=== PATIENT | female | born 1970 | race Caucasian/White ===

== ENCOUNTER 2019-12-06 07:13 | Observation (INO) ==
--- NOTE | 2019-11-17 15:03 | PAT Medication Instructions ---
Medication Instructions Date of Service November 17, 2019 Home Medications multivitamin 1 tab PO PM ibuprofen 600 mg PO DAILY PRN ASK your surgeon for instructions ibuprofen 600 mg PO DAILY PRN Take evening before surgery multivitamin 1 tab PO PM OTHERWISE NOTHING TO EAT OR DRINK AFTER MIDNIGHT Other Notes If you have any questions please call us at [phone] or [phone] or [phone] or [phone]
--- NOTE | 2019-11-19 12:20 | Anesthesiology Consultation ---
Date of Service November 19, 2019 Assessment & Plan (1) Encounter for pre-operative examination: COVID Status: As of 11/18 assessment, patient denies travel to endemic area, known exposure/sick contacts, or symptoms of COVID19. Patient instructed that they and their household members must follow strict social distancing guidelines, wear a mask in public and avoid travel for 14 days prior to surgery. Preoperative COVID19 testing to be completed prior to surgery per surgeon's a rrangements. Patient made aware to self-isolate as much as possible between COVID testing and surgery. Chart Review Chart Review: Acceptable Risk for Surgery and Patient seen in Pre Admission Testing Teaching & Discussion Instructed NPO after midnight before surgery, except medications with 15 cc of water. Medication instructions provided according to the PAT guidelines. History Surgery Operation Date: 12/06/19 07:30 Proposed Procedures p Robotic Total Laparoscopic Hysterectomy - Kiera Baca MD, FACOG Height/Weight Height: 5 ft 3 in Weight: 57.4 kg Allergies Allergy/AdvReac Type Severity Reaction Status Date / Time No Known Allergies Allergy Verified 11/19/19 11:01 Medications Home Medications Medication Instructions Recorded Confirmed Last Taken multivitamin 1 tab PO PM 05/11/19 11/19/19 Unknown Past Medical History Medical History Abnormal uterine bleeding (AUB) AUB - Heavy Chronic constipation Dyspareunia Hx of migraines Hx of varicella Ovarian cyst Exercise / Class Metabolic Activity II 4-5 Yardwork/Stairs/Walk up hill Past Family History Family History Brother Pulmonary embolism from this Deep vein thrombosis from this Other Colon cancer Heart disease Hypertension Ovarian cyst Thyroid disease Past Surgical History Surgical History H/O section x2 Hx of LASIK Hx of tubal ligation S/P tonsillectomy Past Anesthesia History No Hx of Anesthesia Complications and No Family Hx of Anesthesia Complications History of PONV No Hx of PONV and Hx of Motion Sickness Social History Smoking Status: Never smoker Do You Dip or Chew Tobacco: No Hx Alcohol Use: No Hx Substance Use: No substance use type: does not use Review of Systems Pt denies any recent chest pain, shortness of breath, palpitations, cough, fever, URI, or uncontrolled acid reflux. Physical Exam Vital Signs BP: 110/74 P: 87bpm SPO2: 99% RA T: 98.4 F R: 16 Constitutional Appears younger than stated age. ENMT Mouth: + chipped teeth (upper L and lower R molar); no dental restorations and no loose teeth Thyromental Distance: < 3.5 Finger Breadths (3) Mallampati Class: I Neck normal visual inspection; neck extension not limited Respiratory normal respiratory effort Auscultation: lungs clear to auscultation bilaterally Cardiovascular Rate/Rhythm: regular rate and regular rhythm Heart Sounds: no murmur Testing Laboratory Results 11/19/19 12:40 Blood Type A Positive 11/19/19 12:40 Antibody Screen NEGATIVE 11/19/19 12:40 10/26/19 WBC: 5.77 H/H: 11.2/33.1 PLATELETS: 249 Electrocardiogram Date: 11/19/19 Findings: + NSR @ (60bpm)
[2019-11-19 13:30] LABS: BUN Creatinine Ratio 14.6 (10-20); Calcium 8.8 mg/dl (8.5-10.1); Creatinine Clr Calc Pharmacy 74.4 ml/min; Est GFR (African American) 108.7; Est GFR (Non-African American) 93.8; Potassium 4.4 mmol/L (3.5-5.1)
--- NOTE | 2019-11-19 14:15 | Electrocardiogram Report ---
Test Reason : Blood Pressure : / mmHG Vent. Rate : 060 BPM Atrial Rate : 060 BPM P-R Int : 138 ms QRS Dur : 078 ms QT Int : 410 ms P-R-T Axes : 080 080 064 degrees QTc Int : 410 ms Normal sinus rhythm Normal ECG No previous ECGs available Confirmed by Alireza Soni ([id number]) on 11/19/2019 2:14:53 PM Referred By: Kiera Baca Confirmed By:Alireza Soni
[~2019-12-06 07:13] MED LIST: CEFAZOLIN 2000MG 2,000 MG/15 ML SYR IV SCH; LACTATED RINGER'S 1,000 ML IV SCH; LR 15ML/HR IV SCH
[2019-12-06] MEDS ORDERED: PROPOFOL IV EMULSION 10 MG/ML 20 ML VIAL IV ONE (07:14)
[2019-12-06] MEDS ORDERED: NEOSTIGMINE METHYLSULFATE 5 MG/5 ML SYR ONE (07:14)
[2019-12-06] MEDS ORDERED: ONDANSETRON INJ 2 MG/ML 2 ML VIAL ONE ×2 (07:14→10:11)
[2019-12-06] MEDS ORDERED: DEXAMETHASONE SOD INJ 4 MG/ML VIAL ONE (07:14)
[2019-12-06] MEDS ORDERED: GLYCOPYRROLATE 0.2 MG/ML VIAL ONE (07:14)
[2019-12-06] MEDS ORDERED: LIDOCAINE HCL 2% 2 ML VIAL/AMP(20MG/ML) INFIL ONE (07:14)
[2019-12-06] MEDS ORDERED: MIDAZOLAM HCL 1 MG/ML 2ML VIAL ONE (07:15)
[2019-12-06] MEDS ORDERED: fentaNYL citrate 100 MCG/2 ML VIAL ONE ×2 (07:15→10:58)
[2019-12-06] MEDS ORDERED: LARYING-O-JET KIT (LTA) ONE (07:17)
[2019-12-06] MEDS ORDERED: ROCURONIUM BROMIDE 10 MG/ML 5 ML VIAL IV ONE (07:17)
[2019-12-06] MEDS ORDERED: ATROPINE SULFATE 0.1 MG/ML 10ML SYR IV PRN (07:37)
[2019-12-06] MEDS ORDERED: MEPERIDINE HCL 25 MG/ML CARP/VIAL IV PRN (07:37)
[2019-12-06] MEDS ORDERED: PHENYLEPHRINE 100MCG/ML 5ML SYR IV PRN (07:37)
[2019-12-06] MEDS ORDERED: ePHEDrine sulfate 50 MG/ML AMP IV PRN (07:37)
[2019-12-06] MEDS ORDERED: HYDROmorphone INJ 1 MG/ML SYRINGE IV PRN (07:37)
[2019-12-06] MEDS ORDERED: LABETALOL HCL IV 5 MG/ML 20ML IV PRN (07:37)
[2019-12-06] MEDS ORDERED: ONDANSETRON INJ 2 MG/ML 2 ML VIAL IV PRN ×2 (07:37→13:17)
[2019-12-06] MEDS ORDERED: METHYLENE BLUE 0.5% 10 ML VIAL ONE ×2 (07:55→10:10)
[2019-12-06] MEDS ORDERED: BUPIVACAINE 0.5 % 5 MG/1 ML MPF 30ML VIAL ONE (07:55)
--- NOTE | 2019-12-06 08:58 | History & Physical Bridge Note ---
Date of Service December 06, 2019 History & Physical Bridge Note I have examined the patient, reviewed the History & Physical and in the interval since the performance of the History & Physical I have noted the following changes of clinical significance: no changes noted
[2019-12-06] MEDS ORDERED: SUGAMMADEX SODIUM 200 MG/2 ML VIAL IV ONE (10:13)
[2019-12-06] MEDS ORDERED: PHENYLEPHRINE 100MCG/ML 5ML SYR ONE (10:15)
[2019-12-06] MEDS ORDERED: TISSEEL FIBRIN SEALANT 4ML TOP ONE (10:29)
--- NOTE | 2019-12-06 10:56 | Operative Report ---
PG Post Operative Report Pre & Post Diagnosis Operation Date: 12/06/19 08:45 Pre-Op Diagnosis: Intramural Uterine Fibroid, abnormal uterine bleeding Post-Op Diagnosis: Intramural Uterine Fibroid, abnormal uterine bleeding I identified the patient and participated in the time-out.: Yes Procedure Operation Date: 12/06/19 08:45 Actual Procedures p Robotic-assisted Total Laparoscopic Hysterectomy, bilateral salpingectomy, cystoscopy - Kiera Baca MD, FACOG Surgeon Kiera Baca MD, FACOG Track Moving Machine Operator . Estimated Blood Loss 20 Findings Consistent with Post-Op Diagnosis Specimens Uterus cervix fallopian tubes Description of Procedure Patient was given a general anesthetic, prepped and draped in dorsal lithotomy position in yellow fin guru stirrups. Care was taken to position the legs and arms properly with no excess pressure on any area. Pre-operative antibiotics were given and SCDs applied earlier. James catheter was inserted into her bladder, V-Care manipluator was placed in the uterus and sutured in place. Gloves were changed and then a supra-umbilical incision was made with scalpel, using Claudia technique, we dissected through the subcutaneous fat, fascia, split the rectus muscles and then entered the peritoneal cavity.. Blunt tip Claudia Trochar then inserted and balloon inflated to stabilize the port. CO2 gas was then used to insufflate the peritoneal cavity. Findings. modest bladder adhesions, otherwise normal pelvis Deep tendelenberg position was obtained. 2 robotic ports were then placed, one on the left, one on the right side under direct visualization. 11mm bladeless accessory port placed in left upper quadrant under direct visualization. Robot docked. Arm #1 Monopolar nayana, arm #2 Bipolar [place] grasper. Fallopian tubes were identified and removed with the monoplar nayana and removed thru the accessory port. Ureter was identified on each side and followed a normal course. Distal to the left ovary, the blood supply was coagulated with the bipolar [place] and then cut with Nayana. We were well away from the ureter. Round ligament was coagulated and then cut. Uterine vessels were then skeletonized, bladder flap was sharply dissected away with nayana. Uterine vessels were then coagulated close to the cervix staying away from the left ureter. Vessels then cut. The exact same process was repeated on the right side taking note of the location of the right ureter at all times. Colpotomy was then performed with the monopolar nayana, once completed, the specimen was removed through the vagina. A sponge in a glove was then placed in the vagina to maintain pneumoperitoneum. Instrument exchange then occurred. Arm #1 became the DELMY needle stud driver, Arm # 2 became the Cobra Grasper. 12 inch 2-0 V-Lock 90 day suture was placed through the accessory port. Cuff was closed from left to right, then back taking at least 1cm full thickness bites of vaginal mucosa. Suture was cut so there was no tail, needle removed through the accessory port. Sponge removed from the vagina and seal air tight. Generous irrigation and suction, hemostasis excellent, Tisseal applied to pedicles. Cystoscopy performed and no injury to the bladder, no sutures noted, good strong jets of blue colored dye were noted from both right and left ureter openings. Cystoscope removed and a new james catheter placed. Robot undocked, instruments, ports removed. gas allowed to escape. Incisions injected with Marcaine, fascia closed in the umbilical and a deep stitch into the accessory port with 0-Vicryl. 4-0 subcuticular skin closures on all incisions, dermabond apllied. Sponge and instrument counts correct. I attest to the content of the Intraoperative Record and any orders documented therein. Any exceptions are noted below.
--- NOTE | 2019-12-06 11:34 | Anesthesiology Progress Note ---
Date of Service December 06, 2019 Anesthesia Post Procedure Vital Signs Vital Signs: Temp Pulse Pulse Resp BP BP Pulse Ox 12/06/19 11:30 82 16 130/79 100 12/06/19 11:20 77 16 136/73 100 12/06/19 11:10 78 14 126/80 100 12/06/19 11:01 36.2 C L 72 14 148/79 H 100 12/06/19 07:56 37 C 81 16 129/61 100 Transfer of Care Handoff Completed per policy Notes Mental Status: alert / awake / arousable Patient Amnestic to Procedure: Yes Nausea / Vomiting: adequately controlled Pain: adequately controlled Airway Patency, RR, SpO2: stable & adequate BP & HR: stable & adequate Hydration State: stable & adequate Anesthetic Complications: no major complications apparent and Pt Satisfied with anesthetic care
[2019-12-06] MEDS: fentaNYL citrate 100 MCG/2 ML VIAL IV PRN ×2 (11:50→11:55)
[2019-12-06] MEDS ORDERED: SIMETHICONE 80 MG CHEW PO PRN (13:17)
[2019-12-06] MEDS ORDERED: MAGNESIUM HYDROXIDE SUSP 30 ML UDC PO PRN (13:17)
[2019-12-06] MEDS ORDERED: PROMETHAZINE HCL 12.5 MG in SODIUM CHLORIDE 0.9% 50 ML IV PRN (13:17)
[2019-12-06] MEDS ORDERED: bisacodyL 10 MG SUPP PR PRN (13:17)
[2019-12-06] MEDS ORDERED: ZOLPIDEM TARTRATE 5 MG TAB PO PRN (13:17)
[2019-12-06] MEDS ORDERED: MEPERIDINE HCL 50 MG/ML CARP IV PRN (13:17)
[2019-12-06] MEDS ORDERED: LACTATED RINGER'S 1,000 ML IV SCH (13:17)
[2019-12-06] MEDS ORDERED: OXYCODONE/ACETAMINOPHEN 5mg/325mg TAB PO PRN (13:17)
[2019-12-06] MEDS ORDERED: ACETAMINOPHEN 325 MG TAB PO PRN (13:17)
[2019-12-06] MEDS: IBUPROFEN 600 MG TAB PO PRN ×2 (13:35→17:30)
[2019-12-06] MEDS ORDERED: MULTIVITAMIN TAB PO SCH (21:00)
[2019-12-06] MEDS ORDERED: DOCUSATE SODIUM 100 MG CAP PO SCH (21:00)
--- NOTE | 2019-12-09 06:52 | Discharge Summary ---
Date of Service December 09, 2019 Admission HPI Per Admitting Provider Patient had a laparoscopic hysterectomy and on the same day was dischargedpatient had a laparoscopic hysterectomy and on the same day was discharged and she was ambulating well she was ambulating well pain was well-con trolled Admission Exam (Per Admitting) Constitutional WD/WN, vitals as above Discharge Data Procedures Performed Operation Date: 12/06/19 08:45 Actual Procedures p Robotic-assisted Total Laparoscopic Hysterectomy, bilateral salpingectomy, - Kiera Baca MD, FACOG s Cystoscopy - Kiera Baca MD, FACOG Hospital Course (1) Abnormal uterine bleeding (AUB): Discussed no heavy lifting and no intercourse at this time and that we will reassess at 6 weeks from surgery. Call if any problems or bleeding Coding Level of Care Code None Diagnoses Abnormal uterine bleeding (AUB) N93.9
== END 2019-12-06 17:35 | disposition home or self-care (01) ==
LOC: 4S2 07:13 → ASU 07:13